=== PATIENT | female | born 2005 | race Two or more races ===

== ENCOUNTER 2025-01-21 10:18 | Emergency (ER) | payer MEDICAID, OTHER ==
[~2025-01-21] VITALS: Ht 152.4 cm; Wt 49.9 kg
[2025-01-21 10:27] VITALS: TEMP 98.2
[2025-01-21] MEDS ORDERED: IBUPROFEN 600 MG TABLET ONE (10:50)
[2025-01-21] MEDS: IBUPROFEN 600 MG TABLET PO ONE (10:54)
[2025-01-21 12:04] VITALS: BP 107/70
[2025-01-21 12:26] VITALS: O2SAT 100
== END 2025-01-21 12:35 | disposition home or self-care (01) ==
LOC: ER 10:33
DX: S93.402A Sprain of unspecified ligament of left ankle, initial encounter (principal); X50.1XXA Overexertion from prolonged static or awkward postures, initial encounter; Y93.89 Activity, other specified; Y92.89 Other specified places as the place of occurrence of the external cause; Y99.8 Other external cause status
CPT/HCPCS: 73610-TC; 73630-TC